=== PATIENT | female | born 1955 | race Caucasian/White ===

== ENCOUNTER 2020-11-21 15:40 | Emergency (ER) | payer OTHER ==
[~2020-11-21] VITALS: Ht 170.2 cm; Wt 63.5 kg
[2020-11-21 15:54] VITALS: BP_SYST 124
[2020-11-21 16:51] LABS: BASOPHILS % (AUTO) 0.8 % (0.0-2.0); EOSINOPHILS # (AUTO) 0.1 K/uL (0.0-0.4); EOSINOPHILS % (AUTO) 1.8 % (0.0-4.0); HEMATOCRIT 43.3 % (36-48); HEMOGLOBIN 14.5 g/dL (12.0-16.0); MEAN CORPUSCULAR HEMOGLOBIN 33 pg (27-31); MEAN CORPUSCULAR HGB CONC 34 % (32-36); MEAN CORPUSCULAR VOLUME 97 fL (79.0-98.0); MONOCYTES # (AUTO) 0.3 K/uL (0.0-1.0); MONOCYTES % (AUTO) 6.6 % (1.7-9.3); NEUTROPHILS # (AUTO) 2.6 K/uL (1.8-7.7); NEUTROPHILS % (AUTO) 65.8 % (40.0-70.0); PLATELET COUNT (AUTO) 149 K/uL (130-430); RED BLOOD CELL COUNT(AUTO) 4.46 MIL/uL (4.2-6.2); RED CELL DISTRIBUTION WIDTH 12.7 % (9.0-15.0); WHITE BLOOD COUNT (AUTO) 3.9 K/uL (4.8-10.8)
[2020-11-21 17:02] LABS: CALCIUM 8.8 mg/dL (8.4-11.0); CREATININE 1.04 mg/dL (0.55-1.30); POTASSIUM 4.2 mmol/L (3.5-5.1)
[2020-11-21 17:13] LABS: ALBUMIN 3.5 g/dL (3.4-4.8); TOTAL BILIRUBIN 0.4 mg/dL (0.0-1.0)
[2020-11-21 17:14] LABS: PROTHROMBIN TIME 10.3 SECS (9.5-12.5)
[2020-11-21 17:29] LABS: C-REACTIVE PROTEIN QUANT 0.3 mg/dL (0-0.5)
[2020-11-21] MEDS ORDERED: LEVE500T53 PO (18:40)
[2020-11-21 18:52] VITALS: BP_SYST 124
== END 2020-11-21 18:52 | disposition home or self-care (01) ==
LOC: SED 15:40
DX: G40.909 Epilepsy, unspecified, not intractable, without status epilepticus (principal); E78.00 Pure hypercholesterolemia, unspecified
CPT/HCPCS: 36415; 70470-TC; 71045; 72125-TC; 76376; 80053; 84484; 85025; 85379; 85610-TC; 85730-TC; 86140; 93005; 99285